=== PATIENT | male | born 1960 | race African-American/Black ===

== ENCOUNTER 2018-07-28 05:33 | Day surgery (SDC) | payer BC ==
[2018-07-27 10:46] LABS: URINE BILIRUBIN NEGATIVE (Negative); URINE BLOOD NEGATIVE (Negative); URINE CLARITY CLEAR; URINE COLOR YELLOW; URINE GLUCOSE-RANDOM* NEGATIVE (Negative); URINE KETONES NEGATIVE (Negative); URINE LEUKOCYTES-REFLEX NEGATIVE (Negative); URINE NITRITE-REFLEX NEGATIVE (Negative); URINE PROTEIN (DIPSTICK) TRACE (Negative); URINE SPECIFIC GRAVITY 1.015 (1.005-1.035); URINE UROBILINOGEN 0.2 E.U./dl (0.2-1.0)
[2018-07-27 10:47] LABS: HEMATOCRIT 39.7 % (42.0-52.0); MCHC 32.7 g/dL (28.0-37.0); MCV 88.6 fL (80.0-100.0); RBC 4.48 mil/uL (4.50-6.00); RDW 13.9 % (10.5-14.5); WBC 4.4 thou/uL (4.0-11.0)
[2018-07-27 10:56] LABS: ALBUMIN 4.1 g/dL (3.4-5.0); CALCIUM 10.1 mg/dL (8.5-10.1); CREATININE 2.5 mg/dL (0.7-1.3); POTASSIUM 4.6 mmol/L (3.5-5.1)
[~2018-07-28] VITALS: Ht 182.9 cm; Wt 102.5 kg
[~2018-07-28 05:33] MED LIST: ALDACTONE50 MG PO; BYSTOLIC10 MG PO; CENTRUM SILVER1 EAC2 PO; FISH OIL 1,001000 M2 PO; NIFEDIPINE ER60 M1 PO; VITAMINC500 PO
--- NOTE | 2018-07-28 07:49 | EKG ---
[place] [address] [facility] [place] [address] ELECTROCARDIOGRAM REPORT Name: ALMA DELIA CANAS Room #: 150-3 [facility].#: [id number] ������������������ Admission: 07/28/18 ������������������ Attend Phys: Rickey Han MD Discharge: ������������������ Date of : 62 Report #: [id number] ����������������������������������������������������������������� [id number] THIS REPORT FOR: //name// [facility] Test Date: 2018-07-27 Test Time: 10:29:01 Pat Name: ALMA DELIA CANAS Department: Room: Gender: [employer]: vidhi : 1960 Requested By: Rickey Han Order Number: [id number] MD: Nilesh García Measurements Intervals [place] Rate: 61 P: 18 MO: 171 QRS: 2 QRSD: 105 T: 29 QT: 412 QTc: 415 Interpretive Statements Sinus rhythm Borderline low voltage, extremity leads Compared to ECG 12/24/2005 07:22:55 T-wave abnormality no longer present Prolonged QT interval no longer present Electronically Signed On 07-28-2018 7:49:49 CDT by Nilesh García [email or web address] ��������������������������������������������� <ELECTRONICALLY SIGNED> ���������������������������������������� By: Nilesh García MD, [facility] ��������������������������������������������� 07/28/18 0749 28 Nilesh García MD, [facility] /EPI
[2018-07-28 09:17] VITALS: BP 129/80
[2018-07-28 16:00] VITALS: BP 148/86
[2018-07-28 16:15] VITALS: BP 134/85
[2018-07-28 16:30] VITALS: BP 122/88
[2018-07-28 16:45] VITALS: BP 131/80
[2018-07-28 19:50] VITALS: BP 143/94
--- NOTE | 2018-07-28 20:44 | NUR ---
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 PATIENT IS VERY PLEASANT AND COOPERATIVE WITH TREATMENT PLAN. PATIENT HAD NAUSEA WITH HYDORCODONE. PATIENT STATES HE FEELS BETTER AFTER EMISIS AND REFUSES ANTINAUSEA MEDS.
--- NOTE | 2018-07-29 03:57 | NUR ---
ASSUMED CARE AROUND 1900. AXOX4. S/P LKNEE SX WITH . NAUSEA AND VOMITING SHORTLY AFTER NORCO ADMIN, RECORDED IN ADVERSE REACTION. NO NAUSEA OR VOMITING WITH MS CONTIN. MARLOW ON L KNEE CDI. NO S/S ACUTE DISTRESS NOTED OR REPORTED AT THIS TIME. WILL CONT TO MONITOR FOR ANY CHANGES IN CONDITION.
[2018-07-29 05:14] LABS: HEMATOCRIT 32.9 % (42.0-52.0); MCHC 32.3 g/dL (28.0-37.0); MCV 89.8 fL (80.0-100.0); RBC 3.66 mil/uL (4.50-6.00); WBC 7.9 thou/uL (4.0-11.0)
[2018-07-29 05:27] LABS: HEMOGLOBIN 10.6 gm/dL (14.0-18.0)
[2018-07-29 07:40] VITALS: BP 137/94
[2018-07-29 10:12] VITALS: BP 137/94
[2018-07-29 10:20] VITALS: BP 137/94
--- NOTE | 2018-07-29 11:14 | NUR ---
PATIENT DOING WELL TODAY. TOLERATING DIET. ATE ALL OF HIS BREAKFAST. PAIN WELL CONTROLLED WITH MS CONTIN. DID NOT NEED ANYTHING FOR BREAKTHROUGH PAIN. GOOD URINE OUTPUT. ELE DRESSING INTACT TO LEFT KNEE. ELE DRESSING IS NOT COMPRESSED. TYLER IS AWARE AND STATES THIS IS OK. DISCHARGE INSTRUCTIONS GIVEN TO PATIENT AND . DISCHARGED TO HOME IN STABLE CONDITION.
--- NOTE | 2018-08-03 12:52 | O ---
[facility] [place] [address] OPERATIVE REPORT Name: MISSAELALMA DELIA Marty Room #: DEP [facility]..#: [id number] Admission: 07/28/18 ������������������ Attend Phys: Rickey Han MD Discharge: 07/29/18 ������������������ Date of : 62 Report #: [id number] THIS REPORT FOR: //name// CC: Shea Salud Han DATE OF SERVICE: 07/28/2018 PREOPERATIVE DIAGNOSIS: Left knee osteoarthritis. POSTOPERATIVE DIAGNOSIS: Left knee osteoarthritis. PROCEDURE: Left total knee arthroplasty using Navio robotic assistance. SURGEON: Rickey Han MD. BLASTING CONTRACT MINER: None. ANESTHESIA: LMA with an adductor canal block. IMPLANTS: [employer] size 6 Journey II BCS Oxinium femur, a size 6 tibia, size 12 polyethylene and size 35 patella. TOURNIQUET TIME: 62 minutes. ESTIMATED BLOOD LOSS: 25 mL. COMPLICATIONS: None. SPECIMENS: None. CONDITION UPON LEAVING THE OPERATING ROOM: Stable. INDICATIONS FOR PROCEDURE: The patient is a 58-year-old gentleman with severe left knee osteoarthritis who failed conservative measures for this and after discussion with him, he elected for left total knee arthroplasty. DESCRIPTION OF PROCEDURE: Risks, benefits, alternatives, complications were discussed in detail with the patient including but not limited to risk of anesthesia; risk of damage to nerves, arteries, blood vessels; risk for infection; bleeding; risk for continued knee pain and need for reoperation. Informed consent was obtained from the patient. Left knee was appropriately marked in the preoperative holding area. Adductor canal block was placed by anesthesia. IV Ancef was given for preoperative antibiotics. He was brought to the operating room and placed in supine position on operating room table. LMA anesthesia was induced without complication. Tourniquet was placed on the left [facility] [address] [place] [address] OPERATIVE REPORT Name: ALMA DELIA CANAS Room #: DEP [facility] M.Taryn.#: [id number] Admission: 07/28/18 ������������������ Attend Phys: Rickey Han MD Discharge: 07/29/18 ������������������ Date of : 62 Report #: [id number]. Left lower extremity was prepped and draped in normal sterile fashion. Timeout was performed, properly identifying the patient and procedure as well as the instrumentation and implants. All in the operating room were in agreement. Left lower extremity was exsanguinated, tourniquet was inflated. Tourniquet time was 62 minutes. Standard midline approach to knee was made with 10 blade through the skin. Dissection was taken down sharply to the fascia and deep flaps were developed medially and laterally. Fresh 10 blade was used to make medial parapatellar arthrotomy and the knee was inspected. There was severe medial compartment osteoarthritis with moderate lateral and patellofemoral involvement, I decided to proceed with total knee arthroplasty. ACL and PCL were removed sharply. Reference pins were placed in the femur and the tibia and the knee was digitally mapped using Animating Touch Robotic system. We sized the size 6 femur and size 6 tibia was made and a size 10 spacer. After acceptance of the intraoperative plan, the distal femoral cut was made with the Navio sofia, the distal femoral cutting block was then pinned in place. Distal femoral cut was made. Attention was then turned to the tibia. The remainder of the menisci removed with Bovie cautery. Tibial resection guide was pinned in place using the Navio system for placement of resection guide and the tibial resection was made. After this, flexion and extension gaps were checked and found to have good balance in flexion and extension both medially and laterally. The tibia was sized, found to be a size 6. The size 6 tibial trial was placed, pinned and punched. A size 6 femoral trial was placed and the box cut was made. This was then trialed with a size 10, a size 11 and then a size 12 polyethylene, and size 12 polyethylene had the best fit with a millimeter of laxity medially and laterally throughout range of motion of the knee. 5 mm was taken off the posterior surface of the patella and a size 35 patellar trial button was placed. Knee was taken through range of motion, found to be stable, found to have good patellar tracking. Trial components were removed. Bony ends were thoroughly irrigated with normal saline. Final size 6 tibia, size 6 Journey II BCS Oxinium femur and a size 35 patella were cemented in place using standard cementation techniques. While the cement cured, a periarticular injection consisting of morphine, ropivacaine, epinephrine and Toradol was placed around the knee joint capsule. After the cement cured, the tourniquet was deflated. Hemostasis was obtained with Bovie cautery. A final size 12 polyethylene was placed. A gram of vancomycin was placed deep in the joint. The fascia was closed with 0 Vicryl, skin was closed with 2-0 Vicryl, 3-0 Monocryl. Dermabond and a ELE dressing were applied. The patient tolerated this procedure well and went to recovery room under care of anesthesia postoperatively. ��������������������������������������������� <ELECTRONICALLY SIGNED> ���������������������������������������� By: Rickey Han MD ��������������������������������������������� 08/03/18 1252 1227 1320 Rickey Han MD /nt
== END 2018-07-29 11:40 | disposition home or self-care (01) ==
LOC: TBA 05:33 → OR 05:33 → 4W 16:05 → ENTRNSPT 07-29 11:07 → OR 07-29 11:40 → EDTRNSPTSTS 07-29 11:57
PROVIDERS: Orthopaedic Surgery
DX: M17.12 Unilateral primary osteoarthritis, left knee (principal); I12.9 Hypertensive chronic kidney disease with stage 1 through stage 4 chronic kidney disease, or unspecified chronic kidney disease; N18.2 Chronic kidney disease, stage 2 (mild); E78.5 Hyperlipidemia, unspecified; Z98.890 Other specified postprocedural states; Z79.899 Other long term (current) drug therapy; Z88.8 Allergy status to other drugs, medicaments and biological substances
CPT/HCPCS: 10047; 50010; 50101; 50415; 50954; 51130; 51225; 53000; 53078; 54118; 55372; 56527; 56528; 57095; 57103; 57110; 57127; 57180; 59999; 62110; 62900; 64043; 70005

== ENCOUNTER → 2020-06-05 | Outpatient (CLI) | payer BC, OTHER | LOC: SJCVCIMAG 08:46 | PROVIDERS: ATTEND Internal Medicine | DX: I08.3 Combined rheumatic disorders of mitral, aortic and tricuspid valves (principal); I27.20 Pulmonary hypertension, unspecified; I77.89 Other specified disorders of arteries and arterioles; I10 Essential (primary) hypertension; N28.9 Disorder of kidney and ureter, unspecified ==